=== PATIENT | female | born 1960 | race Caucasian/White ===

== ENCOUNTER → 2016-11-21 | Outpatient (CLI) | payer BC | LOC: HEART 5 11-11 09:00 | DX: R94.31 Abnormal electrocardiogram [ECG] [EKG] (principal); I10 Essential (primary) hypertension; R00.2 Palpitations | CPT/HCPCS: 78452; 93017; A9502; J2785 ==

== ENCOUNTER → 2021-05-02 | Outpatient (CLI) | payer BC, OTHER | LOC: KOH-I 16:28 | DX: R05 Cough (principal) | CPT/HCPCS: 71046 ==

== ENCOUNTER → 2021-08-03 | Outpatient (CLI) | payer BC, OTHER | LOC: ECHO 10:03 | DX: I10 Essential (primary) hypertension (principal); R06.02 Shortness of breath | CPT/HCPCS: ECHO; 93306 ==